=== PATIENT | female | born 1970 | race Two or more races ===

== ENCOUNTER 2024-02-01 09:49 | Emergency (ER) | payer OTHER ==
[~2024-02-01] VITALS: Ht 162.6 cm; Wt 104.3 kg
[2024-02-01 10:09] VITALS: BP 119/81; O2SAT 96
[2024-02-01] MEDS ORDERED: TRAMADOL HCL 50 MG TABLET PO STA (10:52)
== END 2024-02-01 14:32 | disposition home or self-care (01) ==
LOC: ER 09:50
DX: S52.592A Other fractures of lower end of left radius, initial encounter for closed fracture (principal); W18.39XA Other fall on same level, initial encounter; Y93.89 Activity, other specified; Y92.89 Other specified places as the place of occurrence of the external cause; Y99.9 Unspecified external cause status; Z88.0 Allergy status to penicillin

== ENCOUNTER 2024-02-03 09:55 | Outpatient (CLI) | payer OTHER | END 2024-02-03 10:03 | disposition home or self-care (01) | LOC: RAD 09:55 | PROVIDERS: ATTEND Orthopaedic Surgery | DX: S52.532A Colles' fracture of left radius, initial encounter for closed fracture (principal) ==